=== PATIENT | male | born 1950 | race Caucasian/White ===

== ENCOUNTER 2021-01-19 00:49 | Emergency (ER) | payer MEDICARE, OTHER ==
[~2021-01-19] VITALS: Ht 188 cm; Wt 136.9 kg
[2021-01-19] MEDS ORDERED: XARE20TA PO (01:02)
[2021-01-19] MEDS ORDERED: CORE12.5 PO (01:02)
[2021-01-19] MEDS ORDERED: LEXA1TAB2 PO (01:02)
[2021-01-19] MEDS ORDERED: GABA-283 PO (01:02)
[2021-01-19] MEDS ORDERED: LASI20TA3 PO (01:02)
[2021-01-19] MEDS ORDERED: ATOR1TAB21 PO (01:02)
[2021-01-19] MEDS ORDERED: AMAR1TAB5 PO (01:02)
[2021-01-19] MEDS ORDERED: FLOM0.4C39 PO (01:02)
[2021-01-19] MEDS ORDERED: SPIR-10 PO (01:02)
[2021-01-19] MEDS ORDERED: LOSA100T50 PO (01:02)
[2021-01-19] MEDS ORDERED: METF-839 PO (01:02)
[2021-01-19] MEDS ORDERED: PERCOCET 5MG/325MG TAB PO ONE (06:30)
[2021-01-19] MEDS ORDERED: BACITRACIN OINTMENT 30GM TUBE TOP ONE (06:45)
[2021-01-19] MEDS ORDERED: BOOSTRIX/ADACEL VACCINE (DIPHTH/PERTUSS/ACELL/TETANUS) 0.5ML SYR IM ONE (06:50)
[2021-01-19 07:00] VITALS: BP 160/83
[2021-01-19] MEDS ORDERED: BACT400T PO (07:49)
== END 2021-01-19 08:05 | disposition home or self-care (01) ==
LOC: M ED 00:49
DX: T22.212A Burn of second degree of left forearm, initial encounter (principal); W39.XXXA Discharge of firework, initial encounter; Y92.018 Other place in single-family (private) house as the place of occurrence of the external cause; E11.65 Type 2 diabetes mellitus with hyperglycemia; I10 Essential (primary) hypertension; E78.5 Hyperlipidemia, unspecified; G47.30 Sleep apnea, unspecified; K21.9 Gastro-esophageal reflux disease without esophagitis; M41.9 Scoliosis, unspecified; Z79.899 Other long term (current) drug therapy; Z79.84 Long term (current) use of oral hypoglycemic drugs; Z79.01 Long term (current) use of anticoagulants; F17.210 Nicotine dependence, cigarettes, uncomplicated

== ENCOUNTER → 2021-12-16 | Outpatient (REF) | payer MEDICARE ==
[~2021-12-16] MED LIST: AMAR1TAB5 PO; ATOR1TAB21 PO; BACT400T PO; CORE12.5 PO; FLOM0.4C39 PO; GABA-283 PO; LASI20TA3 PO; LEXA1TAB2 PO; LOSA100T45 PO; METF-839 PO; SPIR-10 PO; XARE20TA PO
== END ==
LOC: M SFHCDERM 17:56
PROVIDERS: ATTEND Dermatology
DX: L90.5 Scar conditions and fibrosis of skin (principal)

== ENCOUNTER → 2021-12-31 | Outpatient (REF) | payer MEDICARE, OTHER | LOC: M SFHCDERM 17:01 | PROVIDERS: ATTEND Dermatology | DX: L90.5 Scar conditions and fibrosis of skin (principal) ==

== ENCOUNTER → 2022-01-28 | Outpatient (REF) | payer MEDICARE, OTHER | LOC: M SFHCDERM 14:13 | PROVIDERS: ATTEND Dermatology | DX: T81.89XD Other complications of procedures, not elsewhere classified, subsequent encounter (principal) ==

== ENCOUNTER → 2022-02-04 | Outpatient (REF) | payer MEDICARE, OTHER | LOC: M SFHCDERM 17:27 | PROVIDERS: ATTEND Dermatology | DX: Z51.89 Encounter for other specified aftercare (principal) ==

== ENCOUNTER → 2022-02-24 | Outpatient (REF) | payer MEDICARE, OTHER | LOC: M SFHCDERM 17:32 | PROVIDERS: ATTEND Dermatology | DX: Z51.89 Encounter for other specified aftercare (principal) ==

== ENCOUNTER → 2022-03-17 | Outpatient (REF) | payer MEDICARE, OTHER | LOC: M SFHCDERM 18:05 | PROVIDERS: ATTEND Dermatology | DX: Z51.89 Encounter for other specified aftercare (principal) ==

== ENCOUNTER 2023-02-05 15:46 | Inpatient (IN) | payer MEDICARE, OTHER ==
[~2023-02-05] VITALS: Ht 190.5 cm; Wt 137.4 kg
[~2023-02-05 15:46] MED LIST changes: -GABA-283 PO; +GABA-284 PO; -LOSA100T45 PO; +LOSA100T46 PO
[2023-02-05] MEDS ORDERED: ACETAMINOPHEN 500 MG TAB PO ONE (17:30)
[2023-02-05 17:52] LABS: BASO % 0.2 % (0.0-1.0); EOS # 0.1 10^3/uL (0.0-0.5); EOS % 0.7 % (0.0-3.0); HEMATOCRIT 34.2 % (42.0-52.0); HEMOGLOBIN 11.2 g/dl (13.5-17.5); LYMPH # 0.8 10^3/uL (1.5-5.0); LYMPH % 7.9 % (24.0-44.0); MEAN CORPUSCULAR HEMOGLOBIN 32.1 pg (27.0-33.0); MEAN CORPUSCULAR HGB CONC 32.7 g/dl (32.0-36.5); MONO # 0.9 10^3/uL (0.0-0.8); MONO % 8.3 % (2.0-8.0); NEUTROPHILS # 8.4 10^3/uL (1.5-8.5); NEUTROPHILS % 82.3 % (36.0-66.0); PLATELET COUNT, AUTOMATED 183 10^3/uL (150-450); RED BLOOD COUNT 3.49 10^6/uL (4.30-6.10); WHITE BLOOD COUNT 10.2 10^3/uL (4.0-10.0)
[2023-02-05 18:04] LABS: ERYTHROCYTE SEDIMENTATION RATE 116 mm/hr (0-20)
[2023-02-05 18:19] LABS: BLOOD UREA NITROGEN 21 MG/DL (9-23); CALCIUM LEVEL 8.8 MG/DL (8.3-10.6); CARBON DIOXIDE LEVEL 27 MMOL/L (20-31); CHLORIDE LEVEL 96 MMOL/L (98-107); CREATININE FOR GFR 1.15 MG/DL (0.70-1.30); GLOMERULAR FILTRATION RATE > 60.0 (>42); GLUCOSE, FASTING 391 MG/DL (74-106); POTASSIUM SERUM 4.9 MMOL/L (3.5-5.1); SODIUM LEVEL 130 MMOL/L (136-145)
[2023-02-05 18:25] LABS: RSV AMPLIFICATION NEGATIVE (NEGATIVE)
[2023-02-05] MEDS ORDERED: NS 1,000 ML IV ONE (18:50)
[2023-02-05] MEDS ORDERED: VANCOMYCIN HCL 2,000 MG in D5W 500 ML IV ONE (20:45)
[2023-02-05] MEDS ORDERED: VANCOMYCIN HCL 1,000 MG, VIAL MATE ADAPTER 1 EACH in D5W 250 ML IV ONE ×6 (21:00)
[2023-02-05] MEDS ORDERED: GLIM2TAB4 PO (21:37)
[2023-02-05] MEDS ORDERED: METF-838 PO (21:40)
[2023-02-05] MEDS ORDERED: CEPH500C PO (21:40)
[2023-02-05] MEDS ORDERED: GABA-282 PO (21:40)
[2023-02-05] MEDS ORDERED: ACET650T61 PO (21:42)
[2023-02-05] MEDS ORDERED: TRAM50TA2 PO (21:42)
[2023-02-05] MEDS ORDERED: ZOLP10TA2 PO (21:42)
[2023-02-05] MEDS ORDERED: HOME MED LIST COMPLETE! XX SCH (21:45)
[2023-02-05] MEDS ORDERED: HYDROMORPHONE HCL 0.5 MG/ 0.5 ML SYRINGE IV PRN ×2 (21:55)
[2023-02-05] MEDS ORDERED: DEXTROSE 50% 50ML SYRINGE IV PRN (21:55)
[2023-02-05] MEDS ORDERED: NS 1,000 ML IV SCH (21:55)
[2023-02-05] MEDS ORDERED: GLUCAGON INJ 1MG VIAL SC PRN (21:55)
[2023-02-05] MEDS ORDERED: zolPIDEM TARTRATE 5 MG TAB PO PRN (21:55)
[2023-02-05] MEDS ORDERED: VANCOMYCIN HCL 2,000 MG, VIAL MATE ADAPTER 1 EACH in NS 250 ML IV SCH (21:55)
[2023-02-05] MEDS ORDERED: GLUCOSE 4GM CHEW TABLET PO PRN (21:55)
[2023-02-05] MEDS ORDERED: ACETAMINOPHEN TAB 650MG DOSE (2X325MG) PO PRN (23:00)
[2023-02-05 23:31] LABS: HEMATOCRIT 30.7 % (42.0-52.0); HEMOGLOBIN 9.8 g/dl (13.5-17.5); MEAN CORPUSCULAR HEMOGLOBIN 31.4 pg (27.0-33.0); MEAN CORPUSCULAR HGB CONC 31.9 g/dl (32.0-36.5); MEAN CORPUSCULAR VOLUME 98.4 fl (80.0-96.0); PLATELET COUNT, AUTOMATED 160 10^3/uL (150-450); RED BLOOD COUNT 3.12 10^6/uL (4.30-6.10)
[2023-02-05] MEDS: CARVedilol 12.5 MG TAB PO SCH (23:31)
[2023-02-05] MEDS: GABAPENTIN 400MG CAP PO SCH (23:31)
[2023-02-06 02:20] VITALS: BP 151/72; TEMP 98.1; O2SAT 97
[2023-02-06] MEDS: RAMELTEON 8 MG TAB (ROZEREM) PO SCH ×2 (03:00→20:51)
[2023-02-06] MEDS: VANCOMYCIN HCL 1,000 MG, VIAL MATE ADAPTER 1 EACH in D5W 250 ML IV SCH ×3 (04:58→20:49)
[2023-02-06 06:00] VITALS: BP 162/65; TEMP 97.7; O2SAT 96
[2023-02-06 06:51] LABS: ALBUMIN 2.7 G/DL (3.2-5.2); ALKALINE PHOSPHATASE 64 U/L (46-116); ALT/SGPT 12 U/L (7.0-40); AST/SGOT < 8 U/L (<34); BILIRUBIN,TOTAL 0.4 MG/DL (0.3-1.2); BLOOD UREA NITROGEN 17 MG/DL (9-23); CALCIUM LEVEL 8.1 MG/DL (8.3-10.6); CARBON DIOXIDE LEVEL 25 MMOL/L (20-31); CHLORIDE LEVEL 101 MMOL/L (98-107); GLOMERULAR FILTRATION RATE > 60.0 (>42); GLUCOSE, FASTING 301 MG/DL (74-106); POTASSIUM SERUM 4.3 MMOL/L (3.5-5.1); SODIUM LEVEL 134 MMOL/L (136-145); TOTAL PROTEIN 5.6 G/DL (5.7-8.2)
[2023-02-06] MEDS ORDERED: MORPHINE 4 MG/ML 1ML VIAL IV PRN (07:35)
[2023-02-06] MEDS ORDERED: MORPHINE 2 MG/ML 1ML VIAL IV PRN (07:35)
[2023-02-06] MEDS: LEVEMIR (INSULIN DETEMIR) 1 UNITS/0.01ML SC SCH ×2 (08:24→20:49)
[2023-02-06] MEDS: INSULIN LISPRO (NovoLOG) PER UNIT SC SCH ×4 (08:25→20:49)
[2023-02-06] MEDS: TAMSULOSIN 0.4 MG CAP PO SCH (08:25)
[2023-02-06] MEDS: SPIRONOLACTONE 25 MG TAB PO SCH (08:26)
[2023-02-06] MEDS: GABAPENTIN 300 MG CAP PO SCH ×2 (08:26→16:06)
[2023-02-06] MEDS: FUROSEMIDE 20 MG TAB PO SCH (08:26)
[2023-02-06] MEDS: CARVedilol 12.5 MG TAB PO SCH ×2 (08:26→20:51)
[2023-02-06] MEDS: LOSARTAN 50MG TABLET PO SCH (08:27)
[2023-02-06] MEDS: ESCITALOPRAM OXALATE 10 MG TAB (LEXAPRO) PO SCH (08:27)
[2023-02-06 12:50] LABS: HEMOGLOBIN A1c 11.3 % (4.0-6.0)
[2023-02-06 13:25] VITALS: BP 133/66; TEMP 98.1; O2SAT 95
[2023-02-06] MEDS ORDERED: LIDOCAINE 2% MDV 20ML VIAL As Ordered ONE (13:43)
[2023-02-06] MEDS ORDERED: GENTAMICIN SULF 80MG/2ML VIAL As Ordered ONE (14:07)
[2023-02-06] MEDS ORDERED: PHENYLephrine 500MCG 5ML (100MCG/ML) SYRINGE As Ordered ONE (14:59)
[2023-02-06] MEDS ORDERED: ACETAMINOPHEN 1000MG 100ML IV BAG As Ordered ONE (14:59)
[2023-02-06] MEDS ORDERED: LIDOCAINE 2% 100MG/5ML SDV (FOR ANES.) As Ordered ONE (14:59)
[2023-02-06] MEDS ORDERED: MIDAZOLAM INJ 2MG/2ML VIAL As Ordered ONE (14:59)
[2023-02-06] MEDS ORDERED: fentaNYL 100 MCG/2 ML INJECTION As Ordered ONE (14:59)
[2023-02-06] MEDS ORDERED: propofoL 200 MG/20 ML VIAL As Ordered ONE (14:59)
[2023-02-06] MEDS ORDERED: ePHEDrine SULFATE 25 MG/5 ML(5MG/ML) SYRINGE As Ordered ONE (14:59)
[2023-02-06] MEDS ORDERED: oxyCODONE 5MG TAB PO PRN (15:15)
[2023-02-06] MEDS ORDERED: LR 1,000 ML IV SCH (15:15)
[2023-02-06] MEDS ORDERED: ONDANSETRON 4MG 2ML VIAL IV PRN (15:15)
[2023-02-06] MEDS ORDERED: HYDROMORPHONE HCL 0.5 MG/ 0.5 ML SYRINGE IV PRN (15:15)
[2023-02-06] MEDS ORDERED: fentaNYL 100 MCG/2 ML INJECTION IV PRN (15:15)
[2023-02-06 15:43] VITALS: BP 126/66; TEMP 97.5; O2SAT 96
[2023-02-06] MEDS: ATORVASTATIN 20 MG TAB PO SCH (20:51)
[2023-02-06] MEDS: GABAPENTIN 400MG CAP PO SCH (20:51)
[2023-02-06 22:00] VITALS: BP 142/76; TEMP 98.2; O2SAT 97
[2023-02-07] MEDS: VANCOMYCIN HCL 1,000 MG, VIAL MATE ADAPTER 1 EACH in D5W 250 ML IV SCH ×4 (05:25→21:24)
[2023-02-07 05:36] VITALS: BP 117/49; TEMP 98.4; O2SAT 96
[2023-02-07 07:13] LABS: HEMATOCRIT 28.8 % (42.0-52.0); HEMOGLOBIN 9.4 g/dl (13.5-17.5); MEAN CORPUSCULAR HEMOGLOBIN 31.9 pg (27.0-33.0); MEAN CORPUSCULAR HGB CONC 32.6 g/dl (32.0-36.5); MEAN CORPUSCULAR VOLUME 97.6 fl (80.0-96.0); PLATELET COUNT, AUTOMATED 180 10^3/uL (150-450); RED BLOOD COUNT 2.95 10^6/uL (4.30-6.10); WHITE BLOOD COUNT 7.2 10^3/uL (4.0-10.0)
[2023-02-07 07:40] LABS: ALBUMIN 2.6 G/DL (3.2-5.2); ALKALINE PHOSPHATASE 64 U/L (46-116); ALT/SGPT 19 U/L (7.0-40); AST/SGOT 9 U/L (<34); BILIRUBIN,TOTAL 0.4 MG/DL (0.3-1.2); BLOOD UREA NITROGEN 14 MG/DL (9-23); CALCIUM LEVEL 8.1 MG/DL (8.3-10.6); CARBON DIOXIDE LEVEL 26 MMOL/L (20-31); CHLORIDE LEVEL 101 MMOL/L (98-107); CREATININE FOR GFR 0.95 MG/DL (0.70-1.30); GLOMERULAR FILTRATION RATE > 60.0 (>42); GLUCOSE, FASTING 287 MG/DL (74-106); POTASSIUM SERUM 4.1 MMOL/L (3.5-5.1); SODIUM LEVEL 133 MMOL/L (136-145); TOTAL PROTEIN 5.7 G/DL (5.7-8.2)
[2023-02-07] MEDS: PIPERACILLIN/TAZOBACTAM SOD 3.375 GM in D5W MINI-BAG PLUS 50 ML IV SCH ×3 (08:35→20:16)
[2023-02-07] MEDS: INSULIN LISPRO (NovoLOG) PER UNIT SC SCH ×4 (08:36→21:24)
[2023-02-07] MEDS: ESCITALOPRAM OXALATE 10 MG TAB (LEXAPRO) PO SCH (08:37)
[2023-02-07] MEDS: TAMSULOSIN 0.4 MG CAP PO SCH (08:37)
[2023-02-07] MEDS: GABAPENTIN 300 MG CAP PO SCH ×2 (08:37→14:30)
[2023-02-07] MEDS: SPIRONOLACTONE 25 MG TAB PO SCH (08:47)
[2023-02-07] MEDS: FUROSEMIDE 20 MG TAB PO SCH (08:47)
[2023-02-07] MEDS: CARVedilol 12.5 MG TAB PO SCH ×2 (08:47→20:17)
[2023-02-07] MEDS: LOSARTAN 50MG TABLET PO SCH (08:48)
[2023-02-07] MEDS ORDERED: LEVEMIR (INSULIN DETEMIR) 1 UNITS/0.01ML SC SCH ×2 (09:00→21:00)
[2023-02-07] MEDS ORDERED: traMADol 50 MG TAB PO PRN (14:15)
[2023-02-07] MEDS: PERCOCET 5MG/325MG TAB PO PRN ×2 (14:31→20:17)
[2023-02-07] MEDS: LACTOBACILLUS ACIDOPHILUS CAP (BACID) PO SCH (17:28)
[2023-02-07 20:00] VITALS: BP 144/73; TEMP 97.9; O2SAT 97
[2023-02-07] MEDS: RAMELTEON 8 MG TAB (ROZEREM) PO SCH (20:16)
[2023-02-07] MEDS: ATORVASTATIN 20 MG TAB PO SCH (20:17)
[2023-02-07] MEDS: GABAPENTIN 400MG CAP PO SCH (20:17)
[2023-02-08] MEDS: PIPERACILLIN/TAZOBACTAM SOD 3.375 GM in D5W MINI-BAG PLUS 50 ML IV SCH ×4 (01:59→21:02)
[2023-02-08] MEDS: VANCOMYCIN HCL 1,000 MG, VIAL MATE ADAPTER 1 EACH in D5W 250 ML IV SCH ×2 (05:20→12:49)
[2023-02-08 05:57] VITALS: BP 158/79; TEMP 97.7; O2SAT 94
[2023-02-08 06:15] LABS: HEMATOCRIT 29.8 % (42.0-52.0); HEMOGLOBIN 9.5 g/dl (13.5-17.5); MEAN CORPUSCULAR HEMOGLOBIN 31.3 pg (27.0-33.0); MEAN CORPUSCULAR HGB CONC 31.9 g/dl (32.0-36.5); PLATELET COUNT, AUTOMATED 182 10^3/uL (150-450); RED BLOOD COUNT 3.04 10^6/uL (4.30-6.10); WHITE BLOOD COUNT 5.9 10^3/uL (4.0-10.0)
[2023-02-08 06:49] LABS: ALBUMIN 2.6 G/DL (3.2-5.2); ALKALINE PHOSPHATASE 65 U/L (46-116); ALT/SGPT 27 U/L (7.0-40); AST/SGOT 13 U/L (<34); BILIRUBIN,TOTAL 0.3 MG/DL (0.3-1.2); BLOOD UREA NITROGEN 13 MG/DL (9-23); CALCIUM LEVEL 8.1 MG/DL (8.3-10.6); CARBON DIOXIDE LEVEL 26 MMOL/L (20-31); CHLORIDE LEVEL 104 MMOL/L (98-107); CREATININE FOR GFR 0.88 MG/DL (0.70-1.30); GLOMERULAR FILTRATION RATE > 60.0 (>42); GLUCOSE, FASTING 223 MG/DL (74-106); POTASSIUM SERUM 3.9 MMOL/L (3.5-5.1); SODIUM LEVEL 140 MMOL/L (136-145); TOTAL PROTEIN 5.6 G/DL (5.7-8.2)
[2023-02-08] MEDS ORDERED: RIVAROXABAN 20MG TAB (XARELTO) PO SCH (08:00)
[2023-02-08] MEDS ORDERED: LEVEMIR (INSULIN DETEMIR) 1 UNITS/0.01ML SC SCH (09:00)
[2023-02-08] MEDS: LACTOBACILLUS ACIDOPHILUS CAP (BACID) PO SCH ×2 (09:14→17:42)
[2023-02-08] MEDS: PERCOCET 5MG/325MG TAB PO PRN ×2 (09:14→21:05)
[2023-02-08] MEDS: LEVEMIR (INSULIN DETEMIR) 1 UNITS/0.01ML SC SCH ×2 (09:15→21:04)
[2023-02-08] MEDS: INSULIN LISPRO (NovoLOG) PER UNIT SC SCH ×4 (09:15→21:00)
[2023-02-08] MEDS: TAMSULOSIN 0.4 MG CAP PO SCH (09:16)
[2023-02-08] MEDS: GABAPENTIN 300 MG CAP PO SCH ×2 (09:17→15:06)
[2023-02-08] MEDS: ESCITALOPRAM OXALATE 10 MG TAB (LEXAPRO) PO SCH (09:17)
[2023-02-08] MEDS: CARVedilol 12.5 MG TAB PO SCH ×2 (09:18→21:02)
[2023-02-08] MEDS: LOSARTAN 50MG TABLET PO SCH (09:19)
[2023-02-08 14:00] VITALS: BP 143/55; TEMP 97.3; O2SAT 95
[2023-02-08] MEDS ORDERED: tiZANidine 4 MG TAB PO PRN (19:50)
[2023-02-08] MEDS ORDERED: PILL CUTTER 1 EACH XX PRN (19:55)
[2023-02-08] MEDS: RAMELTEON 8 MG TAB (ROZEREM) PO SCH (21:03)
[2023-02-08] MEDS: GABAPENTIN 400MG CAP PO SCH (21:03)
[2023-02-08] MEDS: ATORVASTATIN 20 MG TAB PO SCH (21:03)
[2023-02-08 21:30] VITALS: BP 138/60; TEMP 97.7; O2SAT 96
[2023-02-08] MEDS: VANCOMYCIN HCL 750 MG, VIAL MATE ADAPTER 1 EACH in D5W 250 ML IV SCH (23:35)
[2023-02-09] MEDS: VANCOMYCIN HCL 500 MG in D5W MINI-BAG PLUS 100 ML IV SCH ×2 (01:13→13:00)
[2023-02-09] MEDS: PIPERACILLIN/TAZOBACTAM SOD 3.375 GM in D5W MINI-BAG PLUS 50 ML IV SCH ×4 (02:18→21:15)
[2023-02-09 06:00] VITALS: BP 124/63; TEMP 97.9; O2SAT 95
[2023-02-09 06:18] LABS: HEMATOCRIT 30.8 % (42.0-52.0); HEMOGLOBIN 9.7 g/dl (13.5-17.5); MEAN CORPUSCULAR HEMOGLOBIN 31.2 pg (27.0-33.0); MEAN CORPUSCULAR HGB CONC 31.5 g/dl (32.0-36.5); PLATELET COUNT, AUTOMATED 201 10^3/uL (150-450); RED BLOOD COUNT 3.11 10^6/uL (4.30-6.10); WHITE BLOOD COUNT 6.9 10^3/uL (4.0-10.0)
[2023-02-09 06:38] LABS: ALBUMIN 2.6 G/DL (3.2-5.2); ALKALINE PHOSPHATASE 65 U/L (46-116); ALT/SGPT 38 U/L (7.0-40); AST/SGOT 17 U/L (<34); BILIRUBIN,TOTAL 0.3 MG/DL (0.3-1.2); BLOOD UREA NITROGEN 13 MG/DL (9-23); CALCIUM LEVEL 8.1 MG/DL (8.3-10.6); CARBON DIOXIDE LEVEL 27 MMOL/L (20-31); CHLORIDE LEVEL 106 MMOL/L (98-107); GLOMERULAR FILTRATION RATE > 60.0 (>42); GLUCOSE, FASTING 174 MG/DL (74-106); POTASSIUM SERUM 3.9 MMOL/L (3.5-5.1); SODIUM LEVEL 140 MMOL/L (136-145); TOTAL PROTEIN 5.8 G/DL (5.7-8.2)
[2023-02-09] MEDS: INSULIN LISPRO (NovoLOG) PER UNIT SC SCH ×4 (08:38→21:17)
[2023-02-09] MEDS: LEVEMIR (INSULIN DETEMIR) 1 UNITS/0.01ML SC SCH ×2 (08:39→21:17)
[2023-02-09] MEDS: LACTOBACILLUS ACIDOPHILUS CAP (BACID) PO SCH ×2 (08:39→18:15)
[2023-02-09] MEDS: ESCITALOPRAM OXALATE 10 MG TAB (LEXAPRO) PO SCH (08:39)
[2023-02-09] MEDS: ENOXAPARIN 40MG/0.4ML SYRINGE (J1650 PER 10MG) SC SCH (08:40)
[2023-02-09] MEDS: GLIMEPIRIDE 2 MG TAB PO SCH ×2 (08:40→18:15)
[2023-02-09] MEDS: TAMSULOSIN 0.4 MG CAP PO SCH (08:40)
[2023-02-09] MEDS: GABAPENTIN 300 MG CAP PO SCH ×2 (08:40→16:48)
[2023-02-09] MEDS: CARVedilol 12.5 MG TAB PO SCH ×2 (08:41→21:16)
[2023-02-09] MEDS: LOSARTAN 50MG TABLET PO SCH (08:41)
[2023-02-09] MEDS: VANCOMYCIN HCL 750 MG, VIAL MATE ADAPTER 1 EACH in D5W 250 ML IV SCH ×2 (11:32→22:48)
[2023-02-09 14:00] VITALS: BP 128/64; TEMP 97.7; O2SAT 97
[2023-02-09 20:30] VITALS: BP 128/64; TEMP 98.1; O2SAT 95
[2023-02-09] MEDS: GABAPENTIN 400MG CAP PO SCH (21:15)
[2023-02-09] MEDS: RAMELTEON 8 MG TAB (ROZEREM) PO SCH (21:15)
[2023-02-09] MEDS: ATORVASTATIN 20 MG TAB PO SCH (21:16)
[2023-02-10] MEDS: VANCOMYCIN HCL 500 MG in D5W MINI-BAG PLUS 100 ML IV SCH ×3 (01:29→23:35)
[2023-02-10] MEDS: PIPERACILLIN/TAZOBACTAM SOD 3.375 GM in D5W MINI-BAG PLUS 50 ML IV SCH ×4 (02:25→20:49)
[2023-02-10 05:58] VITALS: BP 142/88; TEMP 97.8; O2SAT 95
[2023-02-10] MEDS ORDERED: INSULIN LISPRO (NovoLOG) PER UNIT SC SCH (07:30)
[2023-02-10 08:00] LABS: BLOOD UREA NITROGEN 10 MG/DL (9-23); CALCIUM LEVEL 8.1 MG/DL (8.3-10.6); CARBON DIOXIDE LEVEL 27 MMOL/L (20-31); CHLORIDE LEVEL 108 MMOL/L (98-107); CREATININE FOR GFR 0.92 MG/DL (0.70-1.30); GLOMERULAR FILTRATION RATE > 60.0 (>42); GLUCOSE, FASTING 160 MG/DL (74-106); SODIUM LEVEL 143 MMOL/L (136-145)
[2023-02-10] MEDS: TAMSULOSIN 0.4 MG CAP PO SCH (09:24)
[2023-02-10] MEDS: LACTOBACILLUS ACIDOPHILUS CAP (BACID) PO SCH ×2 (09:24→18:19)
[2023-02-10] MEDS: GABAPENTIN 300 MG CAP PO SCH ×2 (09:24→15:08)
[2023-02-10] MEDS: ESCITALOPRAM OXALATE 10 MG TAB (LEXAPRO) PO SCH (09:24)
[2023-02-10] MEDS: LOSARTAN 50MG TABLET PO SCH (09:24)
[2023-02-10] MEDS: CARVedilol 12.5 MG TAB PO SCH ×2 (09:24→20:48)
[2023-02-10] MEDS: GLIMEPIRIDE 2 MG TAB PO SCH ×2 (09:24→18:19)
[2023-02-10] MEDS: LEVEMIR (INSULIN DETEMIR) 1 UNITS/0.01ML SC SCH ×2 (09:25→20:49)
[2023-02-10] MEDS: ENOXAPARIN 40MG/0.4ML SYRINGE (J1650 PER 10MG) SC SCH (09:25)
[2023-02-10] MEDS: INSULIN LISPRO (NovoLOG) PER UNIT SC SCH ×5 (09:28→18:20)
[2023-02-10] MEDS: VANCOMYCIN HCL 750 MG, VIAL MATE ADAPTER 1 EACH in D5W 250 ML IV SCH ×2 (11:25→23:35)
[2023-02-10 14:00] VITALS: BP 159/79; TEMP 97.2; O2SAT 96
[2023-02-10 20:27] VITALS: BP 125/50; TEMP 97.9; O2SAT 95
[2023-02-10] MEDS: ATORVASTATIN 20 MG TAB PO SCH (20:48)
[2023-02-10] MEDS: GABAPENTIN 400MG CAP PO SCH (20:48)
[2023-02-10] MEDS: RAMELTEON 8 MG TAB (ROZEREM) PO SCH (20:48)
[2023-02-10] MEDS: PERCOCET 5MG/325MG TAB PO PRN (23:44)
[2023-02-11] MEDS: PIPERACILLIN/TAZOBACTAM SOD 3.375 GM in D5W MINI-BAG PLUS 50 ML IV SCH ×4 (02:53→20:35)
[2023-02-11 05:33] VITALS: BP 144/78; TEMP 97.5; O2SAT 94
[2023-02-11 05:41] LABS: BASO % 0.5 % (0.0-1.0); EOS # 0.3 10^3/uL (0.0-0.5); EOS % 3.8 % (0.0-3.0); LYMPH # 1.8 10^3/uL (1.5-5.0); LYMPH % 25.1 % (24.0-44.0); MEAN CORPUSCULAR HEMOGLOBIN 31.1 pg (27.0-33.0); MEAN CORPUSCULAR HGB CONC 31.3 g/dl (32.0-36.5); MEAN CORPUSCULAR VOLUME 99.4 fl (80.0-96.0); MONO # 0.6 10^3/uL (0.0-0.8); MONO % 7.5 % (2.0-8.0); NEUTROPHILS # 4.6 10^3/uL (1.5-8.5); NEUTROPHILS % 62.4 % (36.0-66.0); PLATELET COUNT, AUTOMATED 247 10^3/uL (150-450); RED BLOOD COUNT 3.22 10^6/uL (4.30-6.10); WHITE BLOOD COUNT 7.3 10^3/uL (4.0-10.0)
[2023-02-11 06:05] LABS: BLOOD UREA NITROGEN 10 MG/DL (9-23); CALCIUM LEVEL 8.3 MG/DL (8.3-10.6); CARBON DIOXIDE LEVEL 28 MMOL/L (20-31); CHLORIDE LEVEL 109 MMOL/L (98-107); GLOMERULAR FILTRATION RATE > 60.0 (>42); GLUCOSE, FASTING 164 MG/DL (74-106); POTASSIUM SERUM 4.2 MMOL/L (3.5-5.1); SODIUM LEVEL 144 MMOL/L (136-145)
[2023-02-11] MEDS: LACTOBACILLUS ACIDOPHILUS CAP (BACID) PO SCH ×2 (09:47→16:52)
[2023-02-11] MEDS: TAMSULOSIN 0.4 MG CAP PO SCH (09:48)
[2023-02-11] MEDS: CARVedilol 12.5 MG TAB PO SCH ×2 (09:48→20:36)
[2023-02-11] MEDS: ESCITALOPRAM OXALATE 10 MG TAB (LEXAPRO) PO SCH (09:48)
[2023-02-11] MEDS: GABAPENTIN 300 MG CAP PO SCH ×2 (09:48→14:29)
[2023-02-11] MEDS: GLIMEPIRIDE 2 MG TAB PO SCH ×2 (09:49→16:34)
[2023-02-11] MEDS: LOSARTAN 50MG TABLET PO SCH (09:49)
[2023-02-11] MEDS: ENOXAPARIN 40MG/0.4ML SYRINGE (J1650 PER 10MG) SC SCH (09:50)
[2023-02-11] MEDS: INSULIN LISPRO (NovoLOG) PER UNIT SC SCH ×6 (09:50→16:51)
[2023-02-11] MEDS: LEVEMIR (INSULIN DETEMIR) 1 UNITS/0.01ML SC SCH ×2 (09:51→20:37)
[2023-02-11] MEDS: VANCOMYCIN HCL 750 MG, VIAL MATE ADAPTER 1 EACH in D5W 250 ML IV SCH (11:19)
[2023-02-11] MEDS: VANCOMYCIN HCL 500 MG in D5W MINI-BAG PLUS 100 ML IV SCH (13:11)
[2023-02-11 14:00] VITALS: BP 137/57; TEMP 97.7; O2SAT 95
[2023-02-11] MEDS ORDERED: INSU100I48 SQ (14:26)
[2023-02-11] MEDS: MUPIROCIN 2% OINT 22 GM TUBE TOP SCH (16:37)
[2023-02-11] MEDS: PERCOCET 5MG/325MG TAB PO PRN (16:52)
[2023-02-11] MEDS ORDERED: RIVAROXABAN 20MG TAB (XARELTO) PO SCH (18:00)
[2023-02-11] MEDS ORDERED: PEN1MIS22 SC (18:42)
[2023-02-11] MEDS ORDERED: GLUC1TES2 XX (18:42)
[2023-02-11] MEDS ORDERED: LANC30MI XX (18:42)
[2023-02-11] MEDS ORDERED: ALCOPAD25 TOP (18:42)
[2023-02-11] MEDS ORDERED: BLOOKIT21 XX (18:42)
[2023-02-11 19:56] VITALS: BP 137/59; TEMP 97.9; O2SAT 93
[2023-02-11] MEDS: GABAPENTIN 400MG CAP PO SCH (20:36)
[2023-02-11] MEDS: RAMELTEON 8 MG TAB (ROZEREM) PO SCH (20:36)
[2023-02-11] MEDS: ATORVASTATIN 20 MG TAB PO SCH (20:36)
[2023-02-12 05:53] VITALS: BP 159/79; TEMP 98.1; O2SAT 93
[2023-02-12 07:52] LABS: BASO % 0.5 % (0.0-1.0); EOS # 0.2 10^3/uL (0.0-0.5); EOS % 3.5 % (0.0-3.0); HEMATOCRIT 29.2 % (42.0-52.0); HEMOGLOBIN 9.2 g/dl (13.5-17.5); LYMPH # 1.5 10^3/uL (1.5-5.0); LYMPH % 22.7 % (24.0-44.0); MEAN CORPUSCULAR HEMOGLOBIN 31.4 pg (27.0-33.0); MEAN CORPUSCULAR HGB CONC 31.5 g/dl (32.0-36.5); MEAN CORPUSCULAR VOLUME 99.7 fl (80.0-96.0); MONO # 0.5 10^3/uL (0.0-0.8); MONO % 7.1 % (2.0-8.0); NEUTROPHILS # 4.3 10^3/uL (1.5-8.5); NEUTROPHILS % 65.6 % (36.0-66.0); PLATELET COUNT, AUTOMATED 256 10^3/uL (150-450); RED BLOOD COUNT 2.93 10^6/uL (4.30-6.10); WHITE BLOOD COUNT 6.5 10^3/uL (4.0-10.0)
[2023-02-12] MEDS ORDERED: AMOX875T2 PO (08:12)
[2023-02-12] MEDS ORDERED: RISATAB3 PO (08:12)
[2023-02-12] MEDS ORDERED: MUPI2OI TOP (08:12)
[2023-02-12] MEDS ORDERED: TRAM50TA2 PO (08:12)
[2023-02-12 08:16] LABS: BLOOD UREA NITROGEN 14 MG/DL (9-23); CALCIUM LEVEL 8.1 MG/DL (8.3-10.6); CARBON DIOXIDE LEVEL 27 MMOL/L (20-31); CHLORIDE LEVEL 107 MMOL/L (98-107); CREATININE FOR GFR 0.97 MG/DL (0.70-1.30); GLOMERULAR FILTRATION RATE > 60.0 (>42); GLUCOSE, FASTING 169 MG/DL (74-106); POTASSIUM SERUM 4.4 MMOL/L (3.5-5.1); SODIUM LEVEL 142 MMOL/L (136-145)
[2023-02-12] MEDS ORDERED: PEN1MIS22 SC (08:48)
[2023-02-12] MEDS ORDERED: GLUC1TES2 XX (08:48)
[2023-02-12] MEDS ORDERED: LANC30MI XX (08:48)
[2023-02-12] MEDS ORDERED: AUGMENTIN 875 MG TAB PO SCH (09:00)
[2023-02-12] MEDS ORDERED: BOOSTRIX VACCINE (TETANUS/DIPHTH/ACEL. PERTUSSIS) 0.5ML SYR IM ONE (09:00)
[2023-02-12] MEDS ORDERED: SPIRONOLACTONE 25 MG TAB PO SCH (09:00)
[2023-02-12] MEDS ORDERED: FUROSEMIDE 20 MG TAB PO SCH (09:00)
[2023-02-12] MEDS: GABAPENTIN 300 MG CAP PO SCH ×2 (10:08→14:09)
[2023-02-12] MEDS: LACTOBACILLUS ACIDOPHILUS CAP (BACID) PO SCH (10:08)
[2023-02-12] MEDS: LOSARTAN 50MG TABLET PO SCH (10:08)
[2023-02-12] MEDS: GLIMEPIRIDE 2 MG TAB PO SCH (10:09)
[2023-02-12] MEDS: ESCITALOPRAM OXALATE 10 MG TAB (LEXAPRO) PO SCH (10:09)
[2023-02-12 10:10] VITALS: BP 159/79
[2023-02-12] MEDS: TAMSULOSIN 0.4 MG CAP PO SCH (10:10)
[2023-02-12] MEDS: CARVedilol 12.5 MG TAB PO SCH (10:10)
[2023-02-12] MEDS: INSULIN LISPRO (NovoLOG) PER UNIT SC SCH ×4 (10:11→12:00)
[2023-02-12] MEDS: LEVEMIR (INSULIN DETEMIR) 1 UNITS/0.01ML SC SCH (10:13)
[2023-02-12] MEDS: MUPIROCIN 2% OINT 22 GM TUBE TOP SCH (10:13)
== END 2023-02-12 12:30 | disposition home or self-care (01) | DRG 637 ==
LOC: M ED 15:46 → EEVIPCON 21:53 → M ED INP 21:53 → ENRESERV 02-06 01:35 → M MS5PR 02-06 02:10
PROVIDERS: ADMIT Internal Medicine; ATTEND Internal Medicine Nephrology
PROC: 0Y9N0ZZ Drainage of Left Foot, Open Approach (ICD-10-PCS; principal; 2023-02-06 14:00)
DX: E11.628 Type 2 diabetes mellitus with other skin complications (principal); M72.6 Necrotizing fasciitis; L03.116 Cellulitis of left lower limb; E87.1 Hypo-osmolality and hyponatremia; I50.22 Chronic systolic (congestive) heart failure; L02.416 Cutaneous abscess of left lower limb; E11.42 Type 2 diabetes mellitus with diabetic polyneuropathy; I48.0 Paroxysmal atrial fibrillation; E66.9 Obesity, unspecified; I11.0 Hypertensive heart disease with heart failure; L08.9 Local infection of the skin and subcutaneous tissue, unspecified; G47.33 Obstructive sleep apnea (adult) (pediatric); F41.9 Anxiety disorder, unspecified; J44.9 Chronic obstructive pulmonary disease, unspecified; F32.A Depression, unspecified; G47.00 Insomnia, unspecified; E78.5 Hyperlipidemia, unspecified; N40.0 Benign prostatic hyperplasia without lower urinary tract symptoms; Z86.73 Personal history of transient ischemic attack (TIA), and cerebral infarction without residual deficits; Z79.01 Long term (current) use of anticoagulants; Z87.891 Personal history of nicotine dependence; Z96.653 Presence of artificial knee joint, bilateral; Z79.899 Other long term (current) drug therapy; Z20.822 Contact with and (suspected) exposure to COVID-19; Z79.84 Long term (current) use of oral hypoglycemic drugs; Z85.828 Personal history of other malignant neoplasm of skin

== ENCOUNTER → 2023-02-25 | Outpatient (CLI) | payer MEDICARE, OTHER ==
[~2023-02-25] MED LIST changes: +ACET650T61 PO; +ALCOPAD25 TOP; +AMOX875T2 PO; +BLOOKIT21 XX; +CEPH500C PO; +GABA-282 PO; +GLIM2TAB4 PO; +GLUC1TES2 XX; +INSU100I48 SQ; +LANC30MI XX; +METF-838 PO; +MUPI2OI TOP; +PEN1MIS22 SC; +RISATAB3 PO; +TRAM50TA2 PO; +ZOLP10TA2 PO
[2023-02-25 13:25] LABS: BASO % 0.6 % (0.0-1.0); EOS # 0.3 10^3/uL (0.0-0.5); EOS % 4.8 % (0.0-3.0); HEMATOCRIT 38.3 % (42.0-52.0); HEMOGLOBIN 11.6 g/dl (13.5-17.5); LYMPH # 1.5 10^3/uL (1.5-5.0); LYMPH % 21.1 % (24.0-44.0); MEAN CORPUSCULAR HEMOGLOBIN 30.6 pg (27.0-33.0); MEAN CORPUSCULAR HGB CONC 30.3 g/dl (32.0-36.5); MEAN CORPUSCULAR VOLUME 101.1 fl (80.0-96.0); MONO # 0.4 10^3/uL (0.0-0.8); MONO % 5.8 % (2.0-8.0); NEUTROPHILS # 4.8 10^3/uL (1.5-8.5); NEUTROPHILS % 67.4 % (36.0-66.0); PLATELET COUNT, AUTOMATED 243 10^3/uL (150-450); RED BLOOD COUNT 3.79 10^6/uL (4.30-6.10); WHITE BLOOD COUNT 7.1 10^3/uL (4.0-10.0)
[2023-02-25 13:30] LABS: ERYTHROCYTE SEDIMENTATION RATE 54 mm/hr (0-20)
== END ==
LOC: M PLALAB 11:09
PROVIDERS: ATTEND Internal Medicine Infectious Disease
DX: A49.01 Methicillin susceptible Staphylococcus aureus infection, unspecified site (principal)